=== PATIENT | male | born 1960 | race Caucasian/White ===

== ENCOUNTER → 2020-07-05 | Outpatient (CLI) | payer BC | END | disposition home or self-care (01) | LOC: NPLAB 11:19 | PROVIDERS: ATTEND Urology | DX: E29.1 Testicular hypofunction (principal); N52.8 Other male erectile dysfunction | CPT/HCPCS: 36415; 84153; 84403 ==

== ENCOUNTER → 2020-10-11 | Outpatient (CLI) | payer BC ==
[2020-10-11 17:55] LABS: MEAN CORP HGB 30.4 pg (26-34)
== END | disposition home or self-care (01) ==
LOC: NPLAB 16:44
PROVIDERS: ATTEND Urology
DX: E29.1 Testicular hypofunction (principal); N52.9 Male erectile dysfunction, unspecified
CPT/HCPCS: 36415; 85027

== ENCOUNTER → 2022-06-19 | Outpatient (CLI) | payer BC ==
[2022-06-19 14:46] LABS: MEAN CORP HGB 31.6 pg (26-34); RED CELL DISTRIBUTION WIDTH 12.3 % (11.5-14.5)
== END | disposition home or self-care (01) ==
LOC: LAB 14:21
PROVIDERS: ATTEND Urology
DX: E29.1 Testicular hypofunction (principal)
CPT/HCPCS: 36415; 84403; 85027